=== PATIENT | male | born 1975 | race Caucasian/White ===

== ENCOUNTER 2017-06-10 15:50 | Emergency (ER) | payer BC ==
[2017-06-10] MEDS ORDERED: cefTRIAXone(*) 1 GM in NS 0.9% 50 ML* 50 ML IVPB ONE (16:55)
[2017-06-10 17:40] LABS: Hematocrit 49 % (42-52); Mean Corpuscular HGB Conc 35 g/dl (31-36); Mean Corpuscular Hemoglobin 32 pg (27-31); Mean Corpuscular Volume 91 fL (80-94); Mean Platelet Volume 10 um3 (7.4-10.4); Red Blood Count 5.36 10^6/ul (4.0-5.4); Red Cell Distribution Width 13 % (10.5-15); White Blood Count 16.1 10^3/ul (3.5-10.8)
[2017-06-10 17:44] LABS: Add Diff/Slide Review? Slide Review Added; Comments Flag Yes
[2017-06-10 18:01] LABS: Albumin 4.5 g/dL (3.2-5.2); BUN/Creatinine Ratio 8.5 (8-20); C Reactive Protein 41.29 mg/L (< 5.00); Calcium 9.8 mg/dL (8.6-10.3); EGFR African American 133.8 (>60); EGFR Non-African American 104.1 (>60); Globulin 3.5 g/dL (2-4); Potassium 3.8 mmol/L (3.5-5.0); Total Bilirubin 0.4 mg/dL (0.2-1.0)
[2017-06-10] MEDS ORDERED: Iohexol 300* (CONTRAST) 10 ML SDV IV ONE (18:20)
[2017-06-10 18:23] VITALS: BP 135/81
--- NOTE | 2017-06-10 19:06 | RAD ---
Indication: Left lower quadrant pain. Contrast: Administered 100.0 ml of OMNIPAQUE 300 mg/ml CT of the abdomen and pelvis was performed after oral and IV contrast demonstrate. Coronal and sagittal reconstructed images were obtained. Lung bases demonstrate no pleural fluid, nodules or masses. Heart is of normal size without evidence of pericardial effusion. Liver is normal in size. No focal lesions or intrahepatic duct dilatation is noted. The gallbladder demonstrates no calcified gallstones. No pericholecystic fluid or wall thickening is identified. The pancreas demonstrates no mass or pancreatic duct dilatation. The common duct is not dilated. The spleen is normal in size. No adrenal lesions are noted. The kidneys demonstrate symmetric nephrograms without focal lesions. No hydronephrosis is noted. Aorta and inferior vena cava are unremarkable. No retroperitoneal adenopathy is noted. No dilated loops of bowel are noted. The colon is filled with stool. There is thickening of the left spermatic cord as it enters the left inguinal canal and extends into the scrotum. This is consistent with vastitis. Possibility of a varicocele in the left hemiscrotum should BE considered. Urinary bladder is otherwise unremarkable. Aorta and iliac arteries are otherwise unremarkable. IMPRESSION: There is thickening and edema presumably within the left spermatic cord consistent with spermatic cord inflammation and edema. Clinical correlation is suggested. No other masses or fluid collections are noted.
--- NOTE | 2017-06-10 22:07 | ED ---
Kia Falcon Alfonso, scribed for Monty Zapien MD on 06/10/17 at 1652 . GI/ HPI - HPI Summary HPI Summary: This patient is a 41 year old M presenting to [facility] with a chief complaint of left-sided testicular pain since two weeks ago. He was referred to the ED by his urologist. The patient rates the pain 3/10 in severity. Symptoms aggravated by nothing. Symptoms alleviated by nothing. He denies any PMHx. - History of Current Complaint Chief Complaint: EDUrogenitalProblems Time Seen by Provider: 06/10/17 16:34 Stated Complaint: CT/SENT FROM DR MAGDA Solorzano Obtained From: Patient Onset/Duration: Started Weeks Ago - 2, Still Present Timing: Constant Severity: Moderate Current Severity: Moderate Pain Intensity: 3 Additional Locations for Males: Testicles - left Associated Signs and Symptoms: Positive: Negative Aggravating Factor(s): Nothing Alleviating Factor(s): Nothing - Allergy/Home Medications Allergies/Adverse Reactions: Allergies Allergy/AdvReac Type Severity Reaction Status Date / Time No Known Allergies Allergy Verified 06/10/17 16:38 PMH/Surg Hx/FS Hx/Imm Hx Sensory History: Denies: Hx Deafness Opthamlomology History: Denies: Hx Legally Blind Infectious Disease History: No Infectious Disease History: Denies: Traveled Outside the [place] in Last 30 Days - Family History Known Family History: Positive: Other - Cancer - Social History Alcohol Use: Occasionally Substance Use Type: Reports: None Smoking Status (MU): Light Every Day Tobacco Smoker Review of Systems Negative: Fever Positive: other - Left testicular pain. All Other Systems Reviewed And Are Negative: Yes Physical Exam Triage Information Reviewed: Yes Vital Signs On Initial Exam: Initial Vitals Temp Pulse Resp BP Pulse Ox 98.1 F 86 20 141/88 97 06/10/17 15:55 06/10/17 15:55 06/10/17 15:55 06/10/17 15:55 06/10/17 15:55 Vital Signs Reviewed: Yes Appearance: Positive: Well-Appearing, No Pain Distress Skin: Positive: Warm, Skin Color Reflects Adequate Perfusion, Dry Head/Face: Positive: Normal Head/Face Inspection Eyes: Positive: Normal ENT: Positive: Normal ENT inspection Neck: Positive: Supple, Nontender Respiratory/Lung Sounds: Positive: Clear to Auscultation, Breath Sounds Present Cardiovascular: Positive: RRR Abdomen Description: Positive: Soft, Other: - Tenderness in left inguinal canal with fullness. No tenderness to LLQ. Bowel Sounds: Positive: Present Musculoskeletal: Positive: Normal Neurological: Positive: Normal, Sensory/Motor Intact, Alert, Oriented to Person Place, Time, CN Intact II-III Psychiatric: Positive: Affect/Mood Appropriate - Danilea Coma Scale Coma Scale Total: 15 Diagnostics - Vital Signs Vital Signs Temp Pulse Resp BP Pulse Ox 06/10/17 16:36 98.1 F 86 20 141/88 97 06/10/17 15:55 98.1 F 86 20 141/88 97 - Laboratory Lab Results: Lab Results 06/10/17 06/10/17 Range/Units 17:20 17:20 WBC 16.1 H (3.5-10.8) 10^3/ul RBC 5.36 (4.0-5.4) 10^6/ul Hgb 17.0 (14.0-18.0) g/dl Hct 49 (42-52) % MCV 91 (80-94) fL MCH 32 H (27-31) pg MCHC 35 (31-36) g/dl RDW 13 (10.5-15) % Plt Count 239 (150-450) 10^3/ul MPV 10 (7.4-10.4) um3 Neut % (Auto) 80.7 (38-83) % Lymph % (Auto) 10.1 L (25-47) % [place] % (Auto) 6.2 (1-9) % Eos % (Auto) 1.6 (0-6) % Baso % (Auto) 1.4 (0-2) % Absolute Neuts (auto) 13.0 H (1.5-7.7) 10^3/ul Absolute Lymphs (auto) 1.6 (1.0-4.8) 10^3/ul Absolute Monos (auto) 1.0 H (0-0.8) 10^3/ul Absolute Eos (auto) 0.3 (0-0.6) 10^3/ul Absolute Basos (auto) 0.2 (0-0.2) 10^3/ul Absolute Nucleated RBC 0 10^3/ul Nucleated RBC % 0 Sodium 137 (133-145) mmol/L Potassium 3.8 (3.5-5.0) mmol/L Chloride 104 (101-111) mmol/L Carbon Dioxide 26 (22-32) mmol/L Anion Gap 7 (2-11) mmol/L BUN 7 (6-24) mg/dL Creatinine 0.82 (0.67-1.17) mg/dL Est GFR ( Amer) 133.8 (>60) Est GFR (Non-Af Amer) 104.1 (>60) BUN/Creatinine Ratio 8.5 (8-20) Glucose 85 (70-100) mg/dL Calcium 9.8 (8.6-10.3) mg/dL Total Bilirubin 0.40 (0.2-1.0) mg/dL AST 16 (13-39) U/L ALT 15 (7-52) U/L Alkaline Phosphatase 92 (34-104) U/L C-Reactive Protein 41.29 H (< 5.00) mg/L Total Protein 8.0 (6.4-8.9) g/dL Albumin 4.5 (3.2-5.2) g/dL Globulin 3.5 (2-4) g/dL Albumin/Globulin Ratio 1.3 (1-3) Result Diagrams: 06/10/17 17:20 06/10/17 17:20 Lab Statement: Any lab studies that have been ordered have been reviewed, and results considered in the medical decision making process. - CT A/P CT Interpretation Completed By: Radiologist - There is thickening and edema presumably within the left spermatic cord consistent with spermatic cord inflammation and edema. Clinical correlation is suggested. No other masses or fluid collections are noted. ED physician has reviewed this radiology report and agrees. GIGU Course/Dx - Course Course Of Treatment: Mr. House was diagnosed with epididymitis by Dr. Stoll in the office and was sent over to R/O an associated hernia and to receive IV antibiotics. CT revealed that he has inflammation along the whole spermatic cord. - Diagnoses Provider Diagnoses: Acute epididymitis Discharge - Discharge Plan Condition: Stable Disposition: HOME Patient Education Materials: Epididymitis (ED) Referrals: Royer Bridges MD [Primary Care Provider] - 1 Week Alexx Stoll MD [Medical Doctor] - 1 Week The documentation as recorded by the Kia estrada Alfonso accurately reflects the service I personally performed and the decisions made by me, Monty Zapien MD.
== END 2017-06-10 19:51 | disposition home or self-care (01) ==
LOC: ED 15:50
DX: N45.1 Epididymitis (principal); Z72.0 Tobacco use
CPT/HCPCS: 36415; 74177; 80053; 85025; 86140; 96374; 96375; 99282; J0696; J1580; Q9967